=== PATIENT | female | born 2000 | race Two or more races ===

== ENCOUNTER → 2024-10-18 | Outpatient (CLI) | payer MEDICAID, SELFPAY ==
--- NOTE | 2024-10-18 08:53 | XR_ITS ---
Examination: Bilateral wrists 6 views TECHNIQUE: AP oblique lateral each wrist total 6 views Date and time: October 18, 2024 0901 hours INDICATIONS: Bilateral wrist pain one month no trauma. FINDINGS: Adequate bone density. No fracture or dislocation involving either wrist. No avascular necrosis. No arthritic change IMPRESSION: No fracture or dislocation involving either wrist. No erosive or other arthritic change involving either wrist
== END | disposition home or self-care (01) ==
PROVIDERS: PCP Family Medicine; Referring Provider Nurse Practitioner; Visit Provider Nurse Practitioner
DX: M25.531 Pain in right wrist (principal); M25.532 Pain in left wrist
CPT/HCPCS: 73110